=== PATIENT | female | born 1940 | race Caucasian/White ===

== ENCOUNTER → 2020-10-02 | Outpatient (CLI) | payer MEDICARE ==
[2020-09-07 11:00] VITALS: BP 139/68
[~2020-10-02] MED LIST: ALBU2.5V14 IH; ASPI325T8 PO; BUDE10.2 IH; DOXY100T PO; LEVO100T5 PO; LOSA100T14 PO; REGADENOSON 0.4 MG/5 ML DISP.SYRIN. IV ONE; TIOT18CA IH; VERA240T8 PO
--- NOTE | 2020-10-02 15:09 | RAD ---
MR#: [id number] Date of Study: 10/02/2020 Ordering Physician: DAVID TROY, Referring Physician: FELICITA DAIGLE Tech: RT Shirley (R) (N) APPROVED REPORT Test Type: Pharmacological Stress Nurse/Tech: Rhina Keller RN Test Indications: syncope Cardiac History: COPD, emphysema Medications: See Electronic Medical Record Medical History: See Electronic Medical Record Resting ECG: SR BBB Resting Heart Rate: 74 bpm Resting Blood Pressure: 133/64mmHg Pretest Chest Pain: None Nurse/Tech Notes lungs CTA, S1S2 Consent: The procedure was explained to the patient in lay terms. Informed consent was witnessed. Gerhard eout was entered into [employer]. History and Stress Test performed by RT Supriya (R) (N) Pharm. Details Pharmacologic stress testing was performed using 0.4mg per 5ml of regadenoson given intravenously ove r 7-10 seconds. Stress Symptoms No chest pain or symptoms. POST EXERCISE Reason for Termination: Infusion complete Max HR: 104 bpm Max Blood Pressure: 135/58mmHg Blood Pressure response to exercise: Normal blood pressure response during stress. Heart Rate response to exercise: normal response Chest Pain: No. Arrhythmia: No. ST Change: No. INTERPRETATION Stress EKG Conclusion: The resting EKG shows a sinus rhythm and a left bundle branch block. The stress EKG shows no significant changes from baseline. No EKG evidence of stress-induced ischemia. Imaging Protocol IMAGE PROTOCOL: Rest Tc-99m/stress Tc-99m 1 day Rest: Stress: Viability: Radiopharm.Tc99m [id number] Sestamibi Dose10.6mCi 33mCi Duration 15min. 15min. Img Date 10/02/2020 10/02/2020 Inj-Img [id number]. 60min. Rest Admin Site:IV - Right AntecubitalAdministrator:HEATHER Oliva Stress Admin Site: IV - Right AntecubitalAdministrator: HEATHER Oliva STRESS DATA End Diast. Vol.66.0mlAv. Heart Rate81.0bpm End Syst. Vol.7.0mlCO Index BSA0.0L/min Myocardial Ekpz791.0gEject. Hbxwrorz05.0% Stress Rates Pk. Fill Rate3.67EDV/secLVtime Pk. Fill 190.83msec Pk. Empty Rate5.21ESV/secLVtime Pk. Uszkd526.31msec 1/3 Pk. Fill2.02EDV/sec Stress Scores Regional WT0.00Summed WT9.00 Regional WM0.00Summed WM2.00 LV Perfusion The stress scans showed no significant defects. The rest scans showed no significant defects. Nuclear imaging shows no reversible ischemia or infarct. Wall Motion Left ventricular systolic function is normal with no regional wall motion abnormalities and an ejecti on fraction of greater than 70%. LV Perf. Quant 17 Seg. SSS2.00 17 Seg. SRS1.00 17 Seg. SDS1.00 Stress Defect Extent (% LAD)5.00Rest Defect Extent (% LAD)0.00Rev. Defect Extent (% LAD)0.00 Stress Defect Extent (% LCX) 5.00Rest Defect Extent (% LCX)0.00Rev. Defect Extent (% LCX)0.00 Stress Defect Extent (% RCA)0.00Rest Defect Extent (% RCA)0.00Rev. Defect Extent (% RCA)0.00 Stress Defect Extent (% LAXMI)3.30Rest Defect Extent (% LAXMI)0.00Rev. Defect Extent (% LAXMI)0.00 Conclusion 1. No EKG evidence of stress-induced ischemia. 2. Nuclear imaging shows no reversible ischemia or infarct. 3. Normal left ventricular systolic function with an ejection fraction of greater than 70%. 4. Low risk Lexiscan nuclear stress test. Signed by : Remi Thomas MD Electronically Approved : 10/02/2020 15:08:38
== END ==
LOC: NM 08:30
PROVIDERS: ATTEND Internal Medicine Cardiovascular Disease
DX: R07.9 Chest pain, unspecified (principal); J43.9 Emphysema, unspecified
CPT/HCPCS: 78452; 93017; A9500; J2785

== ENCOUNTER 2020-11-21 09:28 | Emergency (ER) | payer MEDICARE ==
[~2020-11-21] VITALS: Ht 162.6 cm; Wt 59.5 kg
[~2020-11-21 09:28] MED LIST changes: -REGADENOSON 0.4 MG/5 ML DISP.SYRIN. IV ONE
--- NOTE | 2020-11-21 09:42 | PHYS DOC ---
Past Medical History Past Medical History: COPD, Hypertension, Hypothyroid Additional Past Medical Histor: emphysema Past Surgical History: No Surgical History Smoking Status: Never Smoker Alcohol Use: None Drug Use: None General Adult EDM: Chief Complaint: DIZZY/LIGHT HEADED HPI: HPI: Patient is a 80 year old female who presents to ER for evaluation of dizziness since Wednesday night while she was in her bed, associated with ringing in her ears. Patient denies any headache, no weakness or numbness anywhere. Patient had never had this problem before. Patient denies any chest pain, no cough, no fever. Patient denies any blurry vision. Patient was seen by her doctor yesterday for the same symptom, prescribed meclizine for dizziness. The symptoms get worse with head movement OR upright position. Review of Systems: Review of Systems: Constitutional: Denies fever or chills. [] Eyes: Denies change in visual acuity. [] HENT: Denies nasal congestion or sore throat. [] Respiratory: Denies cough or shortness of breath. [] Cardiovascular: Denies chest pain or edema. [] GI: Denies abdominal pain, nausea, vomiting, bloody stools or diarrhea. [] : Denies dysuria. [] Musculoskeletal: Denies back pain or joint pain. [] Integument: Denies rash. [] Neurologic: Denies headache, focal weakness or sensory changes. Positive for dizziness Endocrine: Denies polyuria or polydipsia. [] Lymphatic: Denies swollen glands. [] Psychiatric: Denies depression or anxiety. [] Heart Score: Risk Factors: Risk Factors: DM, Current or recent (<one month) smoker, HTN, HLP, family history of CAD, obesity. Risk Scores: Score 0 - 3: 2.5% MACE over next 6 weeks - Discharge Home Score 4 - 6: 20.3% MACE over next 6 weeks - Admit for Clinical Observation Score 7 - 10: 72.7% MACE over next 6 weeks - Early Invasive Strategies Allergies: Allergies: Allergies Coded Allergies Type Severity Reaction Last Updated Verified No Known Drug Allergies 01/21/14 No Physical Exam: PE: Constitutional: Well developed, well nourished, no acute distress, non-toxic appearance. [] HENT: Normocephalic, atraumatic, bilateral external ears normal, oropharynx moist, no oral exudates, nose normal. [] Eyes: PERRLA, EOMI, conjunctiva normal, no discharge. [] Neck: Normal range of motion, no tenderness, supple, no stridor. [] Cardiovascular:Heart rate regular rhythm, no murmur [] Lungs & Thorax: Bilateral breath sounds clear to auscultation [] Abdomen: Bowel sounds normal, soft, no tenderness, no masses, no pulsatile masses. [] Skin: Warm, dry, no erythema, no rash. [] Back: No tenderness, no CVA tenderness. [] Extremities: No tenderness, no cyanosis, no clubbing, ROM intact, no edema. [] Neurologic: Alert and oriented X 3, normal motor function, normal sensory function, no focal deficits noted. [] Psychologic: Affect normal, judgement normal, mood normal. [] Current Patient Data: Labs: Laboratory Tests Test 11/21/20 10:02 11/21/20 13:20 White Blood Count 4.1 x10^3/uL Red Blood Count 3.94 x10^6/uL Hemoglobin 12.0 g/dL Hematocrit 35.2 % Mean Corpuscular Volume 90 fL Mean Corpuscular Hemoglobin 30 pg Mean Corpuscular Hemoglobin Concent 34 g/dL Red Cell Distribution Width 13.8 % Platelet Count 215 x10^3/uL Neutrophils (%) (Auto) 71 % Lymphocytes (%) (Auto) 16 % Monocytes (%) (Auto) 12 % Eosinophils (%) (Auto) 1 % Basophils (%) (Auto) 1 % Neutrophils # (Auto) 2.9 x10^3/uL Lymphocytes # (Auto) 0.6 x10^3/uL Monocytes # (Auto) 0.5 x10^3/uL Eosinophils # (Auto) 0.0 x10^3/uL Basophils # (Auto) 0.0 x10^3/uL Sodium Level 130 mmol/L Potassium Level 4.3 mmol/L Chloride Level 93 mmol/L Carbon Dioxide Level 31 mmol/L Anion Gap 6 Blood Urea Nitrogen 13 mg/dL Creatinine 0.6 mg/dL Estimated GFR (Cockcroft-Gault) 95.7 BUN/Creatinine Ratio 22 Glucose Level 104 mg/dL Calcium Level 10.2 mg/dL Magnesium Level 2.0 mg/dL Total Bilirubin 0.4 mg/dL Aspartate Amino Transf (AST/SGOT) 22 U/L Alanine Aminotransferase (ALT/SGPT) 27 U/L Alkaline Phosphatase 54 U/L Troponin I Quantitative < 0.017 ng/mL Total Protein 7.7 g/dL Albumin 3.9 g/dL Albumin/Globulin Ratio 1.0 Urine Collection Type Unknown Urine Color Yellow Urine Clarity Clear Urine pH 6.0 Urine Specific [place] 1.015 Urine Protein Negative mg/dL Urine Glucose (UA) Negative mg/dL Urine Ketones (Stick) Negative mg/dL Urine Blood Negative Urine Nitrite Negative Urine Bilirubin Negative Urine Urobilinogen Dipstick 0.2 mg/dL Urine Leukocyte Esterase Negative Urine RBC 0 /HPF Urine WBC Occ /HPF Urine Squamous Epithelial Cells Mod /LPF Urine Bacteria Moderate /HPF Current Medications Medications (Trade) Dose Ordered Sig/Petty Route PRN Reason Start Time Stop Time Status Last Admin Dose Admin Meclizine HCl (Antivert) 25 mg 1X ONCE PO 11/21/20 11:45 11/21/20 11:46 DC 11/21/20 11:46 EKG: EKG: EKG was done at 948, heart rate 87 bpm, left bundle branch block, sinus rhythm, no ST segment ovation. Radiology/Procedures: Radiology/Procedures: [][facility] [address] [place], [place] [id number] IMAGING REPORT Signed PATIENT: HERLINDA QUINN ACCOUNT: [id number] : 1940 LOCATION: ER AGE: 80 SEX: F EXAM STATUS: REG ER ORD. PHYSICIAN: BRISEYDA WONG DO REASON: dizziness since 11/19/20 PROCEDURE: CT HEAD WO CONTRAST CT HEAD/BRAIN WO Date: 11/21/2020 10:38 AM Clinical Indication: Reason: dizziness since 11/19/20 / Spl. Instructions: / History: Comparison: 09/04/2020. Technique: 5 mm axial tomographic images were obtained of the head without contrast. These were viewed on brain and bone windows. One or more of the following dose reduction techniques were utilized: Automated exposure control (AEC), Adjustment of mA and/or kV according to patient size, Use of iterative reconstruction technique such as ASiR, CT scan done according to ALARA and image gently/image wisely Findings: Mild generalized cerebral and cerebellar volume loss. Mild nonspecific periventricular hypoattenuation, most commonly seen with chronic small vessel ischemic disease. Calcified atherosclerosis of the bilateral cavernous and paraclinoid internal carotid arteries and intracranial vertebral arteries. No intra- or extra-axial mass or fluid collection. No acute hemorrhage. The ventricles are normal in size, shape, and morphology. The isaac-white matter junction is normal. The subarachnoid cisterns are patent. The visualized paranasal sinuses are normal. The visualized portions of the orbits and globes are normal. The mastoid air cells are clear. The histology specialist topogram shows no lytic lesion or fracture. Impression: No acute intracranial process. Mild cerebral volume loss. Mild chronic small vessel ischemic disease. Electronically signed by: Melissa Joaquin MD (11/21/2020 10:49 AM) [id number] DICTATED and SIGNED BY: MELISSA JOAQUIN MD DATE: 11/21/20 [id number] Course & Med Decision Making: Course & Med Decision Making Pertinent Labs and Imaging studies reviewed. (See chart for details) Patient was given meclizine in the ER, SHE feels much better. Patient will be discharged home, she will need to follow-up with ENT for further evaluation. Dragon Disclaimer: Dragon Disclaimer: This electronic medical record was generated, in whole or in part, using a voice recognition dictation system. Departure Departure Impression: Primary Impression: Vertigo Disposition: 01 DC HOME SELF CARE/HOMELESS Condition: IMPROVED Referrals: JOCELYNE MCGRATH MD (PCP) JONATHAN QUEZADA MD PLEASE CALL THIS ENT DOCTOR FOR FOLLOW UP NEXT WEEK. Patient Instructions: Vertigo Additional Instructions: Thank you for visiting our Emergency Department. We appreciate you trusting us with your care. If any additional problems come up don't hesitate to return to visit us. Please follow up with your primary care provider so they can plan add itional care if needed and know about the problem that you had. If symptoms worsen come back to the Emergency Department. Any concerning symptoms that start such as chest pain, shortness of air, weakness or numbness on one side of the body, running high fevers or any other concerning symptoms return to the ER. BRISEYDA WONG DO Nov 21, 2020 09:42
[2020-11-21 10:14] LABS: BASO % 1 % (0-3); EOS % 1 % (0-3); HEMATOCRIT 35.2 % (36.0-47.0); LYMPH # 0.6 x10^3/uL (1.0-4.8); LYMPH % 16 % (24-48); MEAN CORPUSCULAR HEMOGLOBIN 30 pg (25-35); MEAN CORPUSCULAR HGB CONC 34 g/dL (31-37); MEAN CORPUSCULAR VOLUME 90 fL (79-100); MONO # 0.5 x10^3/uL (0.0-1.1); MONO % 12 % (0-9); NEUT # 2.9 x10^3/uL (1.8-7.7); NEUT % 71 % (31-73); PLATELET COUNT 215 x10^3/uL (140-400); RED BLOOD COUNT 3.94 x10^6/uL (3.50-5.40); RED CELL DISTRIBUTION WIDTH 13.8 % (11.5-14.5); WHITE BLOOD COUNT 4.1 x10^3/uL (4.0-11.0)
[2020-11-21 10:24] LABS: CALCIUM 10.2 mg/dL (8.5-10.1); CREATININE 0.6 mg/dL (0.6-1.0); GFR 95.7; POTASSIUM 4.3 mmol/L (3.5-5.1)
[2020-11-21 10:41] LABS: ALBUMIN 3.9 g/dL (3.4-5.0); TOTAL BILIRUBIN 0.4 mg/dL (0.2-1.0); TOTAL PROTEIN 7.7 g/dL (6.4-8.2)
--- NOTE | 2020-11-21 10:52 | RAD ---
CT HEAD/BRAIN WO Date: 11/21/2020 10:38 AM Clinical Indication: Reason: dizziness since 11/19/20 / Spl. Instructions: / History: Comparison: 09/04/2020. Technique: 5 mm axial tomographic images were obtained of the head without contrast. These were view ed on brain and bone windows. One or more of the following dose reduction techniques were utilized: A utomated exposure control (AEC), Adjustment of mA and/or kV according to patient size, Use of iterati ve reconstruction technique such as ASiR, CT scan done according to ALARA and image gently/image wright ly Findings: Mild generalized cerebral and cerebellar volume loss. Mild nonspecific periventricular hypoattenuatio n, most commonly seen with chronic small vessel ischemic disease. Calcified atherosclerosis of the bi lateral cavernous and paraclinoid internal carotid arteries and intracranial vertebral arteries. No intra- or extra-axial mass or fluid collection. No acute hemorrhage. The ventricles are normal in size, shape, and morphology. The isaac-white matter junction is normal. The subarachnoid cisterns are patent. The visualized paranasal sinuses are normal. The visualized portions of the orbits and globes are no rmal. The mastoid air cells are clear. The wire straightening machine operator topogram shows no lytic lesion or fracture. Impression: No acute intracranial process. Mild cerebral volume loss. Mild chronic small vessel ischemic disease. Electronically signed by: Eugene Joaquin MD (11/21/2020 10:49 AM) [id number]
[2020-11-21] MEDS ORDERED: MECLIZINE HCL 12.5 MG TABLET. PO ONE (11:45)
[2020-11-21 13:47] LABS: BILIRUBIN,URINE NEGATIVE (NEG); CLARITY,URINE CLEAR; COLOR,URINE YELLOW; NITRITE,URINE NEGATIVE (NEG); PROTEIN,URINE NEGATIVE (NEG-TRACE); UROBILINOGEN,URINE 0.2 mg/dL (0.2 mg/dL)
[2020-11-21 13:58] LABS: BACTERIA,URINE MODERATE /HPF (0-FEW); RBC,URINE 0 /HPF (0-2); WBC,URINE OCC /HPF (0-4)
[2020-11-21 14:11] VITALS: BP 152/78
== END 2020-11-21 14:41 | disposition home or self-care (01) ==
LOC: ER 09:28
DX: R42 Dizziness and giddiness (principal); H93.13 Tinnitus, bilateral; J44.9 Chronic obstructive pulmonary disease, unspecified; I10 Essential (primary) hypertension; E03.9 Hypothyroidism, unspecified
CPT/HCPCS: 36415; 70450; 80053; 81001; 83735; 84484; 85025; 87086; 93005; 99284; J8597

== ENCOUNTER 2022-01-26 08:46 | Observation (INO) | payer MEDICARE ==
[~2022-01-26] VITALS: Ht 162.6 cm; Wt 62.6 kg
[~2022-01-26 08:46] MED LIST changes: +VERA240T45 PO; -VERA240T8 PO
[2022-01-26] MEDS ORDERED: methylPREDNISolone SOD SUCC PF 125 MG/2 ML VIAL. IV ONE (09:30)
[2022-01-26] MEDS ORDERED: IPRATRPIUM/ALBUTEROL 0.5/2.5MG 3 ML NEBU. NEB ONE (09:30)
[2022-01-26] MEDS ORDERED: IV NORMAL SALINE 1000ML BAG 1,000 ML IV ONE (09:30)
--- NOTE | 2022-01-26 09:39 | PHYS DOC ---
Past Medical History Past Medical History: COPD, Hypertension, Hypothyroid, Other Additional Past Medical Histor: emphysema,VERTIGO Past Surgical History: No Surgical History Smoking Status: Never Smoker Alcohol Use: None Drug Use: None General Adult EDM: Chief Complaint: SHORTNESS OF BREATH HPI: HPI: Patient is a 81 year old female who presents with complaints of shortness of breath. Patient states that her PCP changed her inhalers a few months ago and since then she feels like she has had an increase in shortness of breath with exertion. Patient wears 3 L nasal cannula at home at all times. Denies recent illness or fevers. No chest pain. Patient states that she has a history of hypertension, hypothyroidism, COPD. Patient denies tobacco or drug use. Patient been fully vaccinated for COVID-19. Review of Systems: Review of Systems: ROS At least 10 ROS systems have been reviewed and are negative except as documented in the HPI. General: Negative except as outlined in HPI above. Skin: Negative except as outlined in HPI above. HEENT: Negative except as outlined in HPI above. Neck: Negative except as outlined in HPI above. Respiratory: Negative except as outlined in HPI above.. Cardiovascular: Negative except as outlined in HPI above. Abdomen: Negative except as outlined in HPI above. : Negative except as outlined in HPI above. Back/MSK: Negative except as outlined in HPI above. Neuro: Negative except as outlined in HPI above. Psych: Negative except as outlined in HPI above. Heart Score: C/O Chest Pain: No Risk Factors: Risk Factors: DM, Current or recent (<one month) smoker, HTN, HLP, family history of CAD, obesity. Risk Scores: Score 0 - 3: 2.5% MACE over next 6 weeks - Discharge Home Score 4 - 6: 20.3% MACE over next 6 weeks - Admit for Clinical Observation Score 7 - 10: 72.7% MACE over next 6 weeks - Early Invasive Strategies Current Medications: Current Medications Medications (Trade) Dose Ordered Sig/Petty Start Time Stop Time Status Last Admin Dose Admin Albuterol/ Ipratropium (Duoneb) 3 ml 1X ONCE 01/26/22 09:30 3 09:31 DC Methylprednisolone Sodium Succinate (SOLU-Medrol 125MG VIAL) 125 mg 1X ONCE 01/26/22 09:30 01/26/22 09:31 DC Sodium Chloride 1,000 ml @ 1,000 mls/hr 1X ONCE 01/26/22 09:30 01/26/22 10:29 Allergies: Allergies: Allergies Coded Allergies Type Severity Reaction Last Updated Verified No Known Drug Allergies 01/21/14 No Physical Exam: PE: Constitutional: Well developed, well nourished, no acute distress, non-toxic appearance. [] HENT: Normocephalic, atraumatic, bilateral external ears normal, oropharynx moist, no oral exudates, nose normal. [] Eyes: PERRLA, EOMI, conjunctiva normal, no discharge. [] Neck: Normal range of motion, no tenderness, supple, no stridor. [] Cardiovascular:Heart rate regular rhythm, no murmur [] Lungs & Thorax: Bilateral breath sounds clear to auscultation [] Abdomen: Bowel sounds normal, soft, no tenderness, no masses, no pulsatile masses. [] Skin: Warm, dry, no erythema, no rash. [] Back: No tenderness, no CVA tenderness. [] Extremities: No tenderness, no cyanosis, no clubbing, ROM intact, no edema. [] Neurologic: Alert and oriented X 3, normal motor function, normal sensory funct ion, no focal deficits noted. [] Psychologic: Affect normal, judgement normal, mood normal. [] Current Patient Data: Vital Signs: Vital Signs Date Time Temp Pulse Resp B/P (MAP) Pulse Ox O2 Delivery O2 Flow Rate FiO2 01/26/22 08:47 97.1 97 20 180/86 (117) 98 Nasal Cannula 2.0 97.1 EKG: EKG: [] Radiology/Procedures: Radiology/Procedures: []AP chest. HISTORY: Short of breath AP view was taken of the chest. There is a very large hiatus hernia. There is mild basilar atelectasis without other infiltrates. There has been improvement compared to an old study from August 2020. IMPRESSION: 1. Very large hiatus hernia. 2. Mild basilar atelectasis without other definite infiltrates Electronically signed by: Terrence Barnhart MD (01/26/2022 9:43 AM) [facility] Course & Med Decision Making: Course & Med Decision Making Pertinent Labs and Imaging studies reviewed. (See chart for details) [] 81-year-old female presents with increasing shortness of breath. Patient has a history of COPD and wears O2 at home at all times. Patient is on 3 L nasal cannula which is what she currently wears at home. Patient's been satting 100%. Afebrile. Work-up in ER consisted of labs, urinalysis, EKG, chest x-ray. Patient given breathing treatment and steroids to help with symptoms. Troponin is 59. All other labs unremarkable. D-dimer is negative. Chest x-ray is unremarkable. Discussed all results with patient. Patient states that she still feels very weak and feels short of breath. Patient's concerned about going home by herself due to weakness. Dragon Disclaimer: Dragon Disclaimer: This electronic medical record was generated, in whole or in part, using a voice recognition dictation system. Departure Departure Impression: Primary Impression: COPD exacerbation Additional Impression: Weakness Disposition: ADMITTED INPATIENT Admitting Physician: MIGDALIA Condition: STABLE Referrals: JOCELYNE MCGRATH MD (PCP) SALLY COVARRUBIAS APRN Jan 26, 2022 09:39
--- NOTE | 2022-01-26 09:46 | RAD ---
AP chest. HISTORY: Short of breath AP view was taken of the chest. There is a very large hiatus hernia. There is mild basilar atelectasi s without other infiltrates. There has been improvement compared to an old study from August 2020. IMPRESSION: 1. Very large hiatus hernia. 2. Mild basilar atelectasis without other definite infiltrates Electronically signed by: Terrence Barnhart MD (01/26/2022 9:43 AM) [facility]
[2022-01-26 09:55] LABS: CALCIUM 10.1 mg/dL (8.5-10.1); CREATININE 0.6 mg/dL (0.6-1.0); GFR 95.5; POTASSIUM 3.4 mmol/L (3.5-5.1)
[2022-01-26 09:59] LABS: BASO % 1 % (0-3); EOS # 0.1 x10^3/uL (0.0-0.7); EOS % 2 % (0-3); HEMATOCRIT 34.4 % (36.0-47.0); HEMOGLOBIN 11.4 g/dL (12.0-15.5); LYMPH # 0.7 x10^3/uL (1.0-4.8); LYMPH % 12 % (24-48); MEAN CORPUSCULAR HEMOGLOBIN 30 pg (25-35); MEAN CORPUSCULAR HGB CONC 33 g/dL (31-37); MEAN CORPUSCULAR VOLUME 89 fL (79-100); MONO # 0.6 x10^3/uL (0.0-1.1); MONO % 10 % (0-9); NEUT # 4.5 x10^3/uL (1.8-7.7); NEUT % 75 % (31-73); PLATELET COUNT 252 x10^3/uL (140-400); RED BLOOD COUNT 3.85 x10^6/uL (3.50-5.40); RED CELL DISTRIBUTION WIDTH 12.9 % (11.5-14.5)
[2022-01-26 10:00] LABS: ALBUMIN 3.8 g/dL (3.4-5.0); ALBUMIN/GLOBULIN RATIO 0.9 (1.0-1.7); MAGNESIUM 1.7 mg/dL (1.8-2.4); TOTAL BILIRUBIN 0.3 mg/dL (0.2-1.0); TOTAL PROTEIN 7.9 g/dL (6.4-8.2)
[2022-01-26 11:14] LABS: BILIRUBIN,URINE NEGATIVE (NEG); CLARITY,URINE CLEAR; COLOR,URINE YELLOW; NITRITE,URINE NEGATIVE (NEG); PROTEIN,URINE NEGATIVE (NEG-TRACE); UROBILINOGEN,URINE 0.2 mg/dL (0.2 mg/dL)
[2022-01-26 11:16] LABS: BACTERIA,URINE 0 /HPF (0-FEW); RBC,URINE OCC /HPF (0-2); WBC,URINE 0 /HPF (0-4)
--- NOTE | 2022-01-26 12:55 | PDOC1 ---
History and Physical Date of Service: DOS: DATE: 01/26/22 TIME: 12:49 Chief Complaint: Chief Complain: Shortness of breath History of Present Illness: HPI: 81-year-old female with past medical history of COPD, hypertension, hypothyroidism who presents with shakiness, weakness and shortness of breath. Onset of symptoms began about 2 weeks ago starting with shortness of breath. This morning she also felt shakiness and weakness and that is why she came to the hospital. Her PCP recently changed her inhalers from Spiriva and Symbicort to Trelegy mainly due to cost and efficacy and ever since the change of her she has been having worsening of her symptoms. Patient is on chronic 3 L nasal cannula at home for her COPD. Denies any fevers, chest pain, abdominal pain, nausea vomiting, dysuria or hematuria or smoking. Patient is vaccinated for Covid. Her tin can feeder is Dr. Clemente. Past Medical/Surgical History: PMH/PSH: Past Medical History: COPD, Hypertension, Hypothyroid, emphysema,VERTIGO Past Surgical History: No Surgical History Allergies: Allergies: Coded Allergies: No Known Drug Allergies (Unverified , 01/21/14) Family History: Family History: Reviewed with no relative findings in the chart Social History: Social History: Smoking Status: Never Smoker Alcohol Use: None Drug Use: None Current Medications: Current Medications Current Medications Sodium Chloride 1,000 ml @ 1,000 mls/hr 1X ONCE IV Last administered on 01/26/22at 09:35; Start 01/26/22 at 09:30; Stop 01/26/22 at 10:29; Status DC Albuterol/ Ipratropium (Duoneb) 3 ml 1X ONCE NEB Last administered on 01/26/22at 09:38; Start 01/26/22 at 09:30; Stop 01/26/22 at 09:31; Status DC Methylprednisolone Sodium Succinate (SOLU-Medrol 125MG VIAL) 125 mg 1X ONCE IV Last administered on 01/26/22at 09:36; Start 01/26/22 at 09:30; Stop 01/26/22 at 09:31; Status DC Active Scripts Active Doxycycline Hyclate 100 Mg Tablet 100 Mg PO BID 5 Days Reported Albuterol Sulfate Conc Neb Soln (Albuterol Sulfate) 2.5 Mg/0.5 Ml Vial.neb 2.5 Mg IH QID Symbicort 160-4.5 Mcg Inhaler (Budesonide/Formoterol Fumarate) 10.2 Gm Hfa.aer.ad 10.2 Gm IH BID Spiriva (Tiotropium [place]) 18 Mcg Cap.w.dev 18 Mcg IH DAILY Aspirin 325 Mg Tablet 325 Mg PO DAILY Levothyroxine Sodium 100 Mcg Tablet 100 Mcg PO DAILY Losartan Potassium 100 Mg Tablet 100 Mg PO DAILY Verapamil Er (Verapamil Hcl) 240 Mg Tablet.er 120 Mg PO QHS Verapamil Er (Verapamil Hcl) 240 Mg Tablet.er 240 Mg PO DAILY ROS: Review of Systems Review of System REVIEW OF SYSTEMS: GENERAL: Positive for weakness SKIN: No bruising, hair changes or rashes. EYES: No blurred, double or loss of vision. NOSE AND THROAT: No history of nosebleeds, hoarseness or sore throat. HEART: No history of palpitations, chest pain or shortness of breath on exertion. LUNGS: Positive for shortness of breath. GASTROINTESTINAL: Denies changes in appetite, nausea, vomiting, diarrhea or constipation. GENITOURINARY: No history of frequency, urgency, hesitancy or nocturia. NEUROLOGIC: Denies history of numbness, tingling, or tremor. PSYCHIATRIC: No history of panic, anxiety or depression. ENDOCRINE: No history of heat or cold intolerance, polyuria or polydipsia. EXTREMITIES: Denies joint pain, pain on walking or stiffness. Physical Exam: Vital Signs: Vital Signs Date Time Temp Pulse Resp B/P (MAP) Pulse Ox O2 Delivery O2 Flow Rate FiO2 01/26/22 10:58 72 25 136/65 (88) 100 Nasal Cannula 2.0 01/26/22 08:47 97.1 97.1 Physcial Exam: General: Well developed, well nourished, no acute distress, well appearing HEENT: Pupils equally round and reactive to light, EOMI, no discharge, normal conjunctiva Neck: Supple, no nuchal rigidity, no JVD, trachea midline, no tenderness Cardiac: RRR, no murmurs, no gallops, no rubs Chest/Lungs: CTAB, no wheeze, no rhonchi, no crackles Abdomen: soft, non-distended, no guarding, no peritoneal signs, non-tender Back: No tenderness Extremities: no edema, pulses intact, non-tender,capillary refill <3 sec bilateral upper and lower extremities, Neuro: Alert and oriented x 4, no focal deficits, normal speech Labs: Labs: Laboratory Tests Test 01/26/22 09:15 01/26/22 10:37 White Blood Count 6.0 x10^3/uL (4.0-11.0) Red Blood Count 3.85 x10^6/uL (3.50-5.40) Hemoglobin 11.4 g/dL (12.0-15.5) Hematocrit 34.4 % (36.0-47.0) Mean Corpuscular Volume 89 fL (79-100) Mean Corpuscular Hemoglobin 30 pg (25-35) Mean Corpuscular Hemoglobin Concent 33 g/dL (31-37) Red Cell Distribution Width 12.9 % (11.5-14.5) Platelet Count 252 x10^3/uL (140-400) Neutrophils (%) (Auto) 75 % (31-73) Lymphocytes (%) (Auto) 12 % (24-48) Monocytes (%) (Auto) 10 % (0-9) Eosinophils (%) (Auto) 2 % (0-3) Basophils (%) (Auto) 1 % (0-3) Neutrophils # (Auto) 4.5 x10^3/uL (1.8-7.7) Lymphocytes # (Auto) 0.7 x10^3/uL (1.0-4.8) Monocytes # (Auto) 0.6 x10^3/uL (0.0-1.1) Eosinophils # (Auto) 0.1 x10^3/uL (0.0-0.7) Basophils # (Auto) 0.0 x10^3/uL (0.0-0.2) D-Dimer (Caitlin) 0.49 ug/mlFEU (0.00-0.50) Sodium Level 131 mmol/L (136-145) Potassium Level 3.4 mmol/L (3.5-5.1) Chloride Level 93 mmol/L (98-107) Carbon Dioxide Level 32 mmol/L (21-32) Anion Gap 6 (6-14) Blood Urea Nitrogen 13 mg/dL (7-20) Creatinine 0.6 mg/dL (0.6-1.0) Estimated GFR (Cockcroft-Gault) 95.5 BUN/Creatinine Ratio 22 (6-20) Glucose Level 103 mg/dL (70-99) Calcium Level 10.1 mg/dL (8.5-10.1) Magnesium Level 1.7 mg/dL (1.8-2.4) Total Bilirubin 0.3 mg/dL (0.2-1.0) Aspartate Amino Transf (AST/SGOT) 33 U/L (15-37) Alanine Aminotransferase (ALT/SGPT) 38 U/L (14-59) Alkaline Phosphatase 79 U/L (46-116) Troponin I High Sensitivity 59 ng/L (4-50) UK-Lch-Z-Type Natriuretic Peptide 261 pg/mL (0-449) Total Protein 7.9 g/dL (6.4-8.2) Albumin 3.8 g/dL (3.4-5.0) Albumin/Globulin Ratio 0.9 (1.0-1.7) Urine Collection Type Unknown Urine Color Yellow Urine Clarity Clear Urine pH 7.0 (<5.0-8.0) Urine Specific [place] 1.015 (1.000-1.030) Urine Protein Negative mg/dL (NEG-TRACE) Urine Glucose (UA) Negative mg/dL (NEG) Urine Ketones (Stick) Negative mg/dL (NEG) Urine Blood Trace (NEG) Urine Nitrite Negative (NEG) Urine Bilirubin Negative (NEG) Urine Urobilinogen Dipstick 0.2 mg/dL (0.2 mg/dL) Urine Leukocyte Esterase Negative (NEG) Urine RBC Occ /HPF (0-2) Urine WBC 0 /HPF (0-4) Urine Squamous Epithelial Cells Mod /LPF Urine Bacteria 0 /HPF (0-FEW) Laboratory Tests Test 01/26/22 09:15 01/26/22 10:37 White Blood Count 6.0 x10^3/uL (4.0-11.0) Red Blood Count 3.85 x10^6/uL (3.50-5.40) Hemoglobin 11.4 g/dL (12.0-15.5) Hematocrit 34.4 % (36.0-47.0) Mean Corpuscular Volume 89 fL (79-100) Mean Corpuscular Hemoglobin 30 pg (25-35) Mean Corpuscular Hemoglobin Concent 33 g/dL (31-37) Red Cell Distribution Width 12.9 % (11.5-14.5) Platelet Count 252 x10^3/uL (140-400) Neutrophils (%) (Auto) 75 % (31-73) Lymphocytes (%) (Auto) 12 % (24-48) Monocytes (%) (Auto) 10 % (0-9) Eosinophils (%) (Auto) 2 % (0-3) Basophils (%) (Auto) 1 % (0-3) Neutrophils # (Auto) 4.5 x10^3/uL (1.8-7.7) Lymphocytes # (Auto) 0.7 x10^3/uL (1.0-4.8) Monocytes # (Auto) 0.6 x10^3/uL (0.0-1.1) Eosinophils # (Auto) 0.1 x10^3/uL (0.0-0.7) Basophils # (Auto) 0.0 x10^3/uL (0.0-0.2) D-Dimer (Caitlin) 0.49 ug/mlFEU (0.00-0.50) Sodium Level 131 mmol/L (136-145) Potassium Level 3.4 mmol/L (3.5-5.1) Chloride Level 93 mmol/L (98-107) Carbon Dioxide Level 32 mmol/L (21-32) Anion Gap 6 (6-14) Blood Urea Nitrogen 13 mg/dL (7-20) Creatinine 0.6 mg/dL (0.6-1.0) Estimated GFR (Cockcroft-Gault) 95.5 BUN/Creatinine Ratio 22 (6-20) Glucose Level 103 mg/dL (70-99) Calcium Level 10.1 mg/dL (8.5-10.1) Magnesium Level 1.7 mg/dL (1.8-2.4) Total Bilirubin 0.3 mg/dL (0.2-1.0) Aspartate Amino Transf (AST/SGOT) 33 U/L (15-37) Alanine Aminotransferase (ALT/SGPT) 38 U/L (14-59) Alkaline Phosphatase 79 U/L (46-116) Troponin I High Sensitivity 59 ng/L (4-50) ES-Oit-H-Type Natriuretic Peptide 261 pg/mL (0-449) Total Protein 7.9 g/dL (6.4-8.2) Albumin 3.8 g/dL (3.4-5.0) Albumin/Globulin Ratio 0.9 (1.0-1.7) Urine Collection Type Unknown Urine Color Yellow Urine Clarity Clear Urine pH 7.0 (<5.0-8.0) Urine Specific [place] 1.015 (1.000-1.030) Urine Protein Negative mg/dL (NEG-TRACE) Urine Glucose (UA) Negative mg/dL (NEG) Urine Ketones (Stick) Negative mg/dL (NEG) Urine Blood Trace (NEG) Urine Nitrite Negative (NEG) Urine Bilirubin Negative (NEG) Urine Urobilinogen Dipstick 0.2 mg/dL (0.2 mg/dL) Urine Leukocyte Esterase Negative (NEG) Urine RBC Occ /HPF (0-2) Urine WBC 0 /HPF (0-4) Urine Squamous Epithelial Cells Mod /LPF Urine Bacteria 0 /HPF (0-FEW) Images: Images PROCEDURE: CHEST AP ONLY AP chest. HISTORY: Short of breath AP view was taken of the chest. There is a very large hiatus hernia. There is mild basilar atelectasis without other infiltrates. There has been improvement compared to an old study from August 2020. IMPRESSION: 1. Very large hiatus hernia. 2. Mild basilar atelectasis without other definite infiltrates Assessment/Plan Assessment/Plan Acute hypoxic respiratory failure Acute electrolyte derangementhyponatremia, hypochloremia, hypokalemia, hypomagnesemia suggestive of volume depletion Hypertensive urgency History of COPD History of hypertension History of hypothyroidism History of vertigo Admit to hospitalist service for further management IV steroids O2 supplementation Continue IV fluids IV electrolyte replacement as needed Resume home antihypertensive regimens Lovenox for DVT prophylaxis Protonix while on steroids GI prophylaxis Cardiac diet CODE STATUS full Discussed with RN and SW Disposition inpatient management as above DPOA: Sister Justifications for Admission Other Justification Acute hypoxic respiratory failure, intractable pain ZARINA OLIVA MD Jan 26, 2022 12:55
[2022-01-26] MEDS ORDERED: DEXTROSE 50% 25 GM / 50ML DISP.SYRIN. IV PRN (13:00)
[2022-01-26] MEDS ORDERED: PROCHLORPERAZINE 10 MG/2 ML VIAL. IV PRN (13:00)
[2022-01-26] MEDS ORDERED: diphenhydrAMINE 50 MG/ML VIAL IVP PRN (13:00)
[2022-01-26] MEDS ORDERED: ACETAMINOPHEN 325 MG TABLET. PO PRN (13:00)
[2022-01-26] MEDS ORDERED: SENNOSIDES 8.6 MG TABLET PO PRN (13:00)
[2022-01-26] MEDS ORDERED: diphenhydrAMINE HCL 25 MG CAPSULE PO PRN ×2 (13:00)
[2022-01-26] MEDS ORDERED: ZOLPIDEM 5 MG TABLET. PO PRN (13:00)
[2022-01-26] MEDS ORDERED: LORazepam 0.5 MG TABLET PO PRN (13:00)
[2022-01-26] MEDS ORDERED: ONDANSETRON PF 4 MG/2 ML VIAL. IVP PRN (13:00)
[2022-01-26] MEDS ORDERED: DOCUSATE SODIUM 100 MG CAPSULE. PO PRN (13:00)
[2022-01-26] MEDS: IV NORMAL SALINE 1000ML BAG 1,000 ML IV SCH (13:56)
[2022-01-26] MEDS: ENOXAPARIN 40 MG/0.4 ML SYRINGE. SQ SCH (13:57)
[2022-01-26] MEDS ORDERED: POTASSIUM CHLORIDE 20 MEQ TABLET.ER. PO ONE (14:00)
[2022-01-26] MEDS ORDERED: MAGNESIUM SULFATE 2GM 50 ML IV ONE (14:00)
[2022-01-26] MEDS ORDERED: LEVO125T5 PO (15:38)
[2022-01-26] MEDS ORDERED: CHOL10008 PO (15:38)
[2022-01-26] MEDS ORDERED: ALBU2.5V8 IH (15:38)
[2022-01-26] MEDS ORDERED: FLUT1BLS3 IH (15:38)
[2022-01-26] MEDS: IPRATRPIUM/ALBUTEROL 0.5/2.5MG 3 ML NEBU. NEB SCH ×2 (15:43→20:27)
[2022-01-26 16:09] VITALS: BP 153/77
[2022-01-26] MEDS: methylPREDNISolone SOD SUCC PF 40 MG/ML VIAL. IV SCH (18:10)
[2022-01-26 19:00] VITALS: BP 140/70
[2022-01-26 23:05] VITALS: BP 136/82
[2022-01-27 03:32] VITALS: BP 136/74
[2022-01-27] MEDS: methylPREDNISolone SOD SUCC PF 40 MG/ML VIAL. IV SCH ×4 (05:39→18:17)
[2022-01-27 07:00] VITALS: BP 125/65
[2022-01-27] MEDS: IPRATRPIUM/ALBUTEROL 0.5/2.5MG 3 ML NEBU. NEB SCH ×4 (07:27→19:57)
[2022-01-27 07:40] LABS: BASO % 0 % (0-3); EOS % 0 % (0-3); HEMATOCRIT 30.6 % (36.0-47.0); HEMOGLOBIN 10.6 g/dL (12.0-15.5); LYMPH # 0.4 x10^3/uL (1.0-4.8); LYMPH % 14 % (24-48); MEAN CORPUSCULAR HEMOGLOBIN 31 pg (25-35); MEAN CORPUSCULAR HGB CONC 35 g/dL (31-37); MEAN CORPUSCULAR VOLUME 90 fL (79-100); MONO # 0.1 x10^3/uL (0.0-1.1); MONO % 2 % (0-9); NEUT # 2.5 x10^3/uL (1.8-7.7); NEUT % 84 % (31-73); PLATELET COUNT 221 x10^3/uL (140-400); RED BLOOD COUNT 3.41 x10^6/uL (3.50-5.40); RED CELL DISTRIBUTION WIDTH 13.1 % (11.5-14.5); WHITE BLOOD COUNT 2.9 x10^3/uL (4.0-11.0)
[2022-01-27 07:52] LABS: CALCIUM 9.1 mg/dL (8.5-10.1); CREATININE 0.6 mg/dL (0.6-1.0); GFR 95.5; MAGNESIUM 2.2 mg/dL (1.8-2.4); PHOSPHORUS 3.1 mg/dL (2.6-4.7)
[2022-01-27] MEDS: PANTOPRAZOLE 40 MG TABLET.DR. PO SCH (09:01)
[2022-01-27] MEDS: IV NORMAL SALINE 1000ML BAG 1,000 ML IV SCH ×3 (09:02→20:00)
--- NOTE | 2022-01-27 09:14 | EKG ---
[facility] [address] [place] [address] Test Date: 2022-01-26 Test Time: 09:07:19 Pat Name: HERLINDA QUINN Department: Room: [facility] Gender: F Missionary Coordinator: : 1940 Requested By: SALLY COVARRUBIAS Order Number: [id number] Reading MD: Zachary Aguayo MD Measurements Intervals [place] Rate: 81 P: -6 HI: 152 QRS: -6 QRSD: 146 T: 117 QT: 408 QTc: 474 Interpretive Statements SINUS RHYTHM PACS LBBB Electronically Signed On 02-03-2022 7:29:59 CDT by Zachary Aguayo MD
--- NOTE | 2022-01-27 10:19 | CONS ---
DATE OF CONSULTATION: 01/27/2022 PULMONARY CONSULTATION ATTENDING PHYSICIAN: Dallin Alcantara DO REASON FOR CONSULTATION: COPD, dyspnea. HISTORY OF PRESENT ILLNESS: The patient is 81-year-old female who has been seen by my partner, Dr. Clemente, in the office. The patient has COPD from secondhand tobacco use. She is on home oxygen at 3 liters on a 24-hour basis. The patient was brought into the hospital with complaint of increased shortness of breath. She states that she usually takes Spiriva and Symbicort at home, but was recently changed to Trelegy Ellipta by her PCP and she started to feel worse. She has an occasional cough. No chest pain. No fever, no chills. She is updated on her COVID vaccine. She is currently requiring 2 liters of oxygen. I have reviewed the patient's chest x-ray and it shows a large hiatal hernia. There is likely compressive atelectasis at the bases from the hiatal hernia. PAST MEDICAL HISTORY: Significant for COPD from secondhand tobaccoism, history of chronic hypoxic respiratory failure, vertigo, hypothyroidism and hypertension. PAST SURGICAL HISTORY: No recent surgery. ALLERGIES: None. FAMILY HISTORY: Noncontributory to lungs. SOCIAL HISTORY: The patient states that she had not smoked cigarettes, but had secondhand exposures. 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 MEDICATIONS: Reviewed as listed in the MRAD including IV Solu-Medrol, DuoNebs, Lovenox for DVT prophylaxis. REVIEW OF SYSTEMS: A 12-point system obtained. Pertinent positives discussed in my present illness, otherwise noncontributory. All systems that were negative were reviewed as well. PHYSICAL EXAMINATION: VITAL SIGNS: Reviewed. Blood pressure stable, pulse ox 96% on 2 liters. NECK: Supple. LUNGS: With diminished breath sounds bilaterally. No wheezing. CARDIOVASCULAR: With a regular rate. ABDOMEN: Soft, nontender. EXTREMITIES: With no pitting edema. LABORATORY DATA: Reviewed. White cell count 2.9, hemoglobin 10.6 and platelets are 221. BUN and creatinine normal. Sodium 136. IMPRESSION: 1. Dyspnea secondary to acute exacerbation of chronic obstructive pulmonary disease. Probably the change in her home bronchodilators may have contributed to it. She states she has done well with combination of Spiriva and Symbicort, but when it was stopped and changed to Trelegy Ellipta, she felt more shortness of air. 2. Abnormal chest x-ray with large hiatal hernia with compressive atelectasis. No signs of pneumonia. 3. No significant tobacco history, but secondhand tobacco exposure. 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 We will obtain PFT results from the office. RECOMMENDATIONS: 1. Discussed with the patient, at this point, I do not see a need for antibiotics as clinically there is no pneumonia. 2. Continue DuoNebs. 3. Continue IV Solu-Medrol. 4. Lovenox for DVT prophylaxis. 5. Dietary precautions to prevent aspiration was given in the setting of large hiatal hernia. She was instructed to keep head of the bed elevated at 30 degrees, avoid spicy food and eat her supper 3 hours before going to bed. 6. We will obtain results of the PFTs from the office. 7. The patient to go back to [facility] post discharge. JULIO DR: Cesar TID: [id number]
[2022-01-27 11:00] VITALS: BP 133/64
--- NOTE | 2022-01-27 11:34 | NUR ---
SW following. Discussed with RN, pt from home alone, 2L (uses 2-3L at home), cardiac diet. Pulmonology following. RN ordering PT/OT. RN advised no SW needs at this time. SW will continue to follow.
--- NOTE | 2022-01-27 11:54 | PDOC ---
[employer] PROGRESS NOTE Date of Service DOS: DATE: 01/27/22 TIME: 11:52 Chief Complaint Chief Complaint Assessment/Plan Acute hypoxic respiratory failure Acute electrolyte derangementhyponatremia, hypochloremia, hypokalemia, hypomagnesemia suggestive of volume depletion Hypertensive urgency History of COPD History of hypertension History of hypothyroidism History of vertigo Admit to hospitalist service for further management IV steroids O2 supplementation Continue IV fluids IV electrolyte replacement as needed Resume home antihypertensive regimens Lovenox for DVT prophylaxis Protonix while on steroids GI prophylaxis Cardiac diet CODE STATUS full Discussed with RN and SW Disposition inpatient management as above DPOA: Sister History of Present Illness History of Present Illness 81-year-old female with past medical history of COPD, hypertension, hypothyroidism who presents with shakiness, weakness and shortness of breath. Onset of symptoms began about 2 weeks ago starting with shortness of breath. This morning she also felt shakiness and weakness and that is why she came to the hospital. Her PCP recently changed her inhalers from Spiriva and Symbicort to Trelegy mainly due to cost and efficacy and ever since the change of her she has been having worsening of her symptoms. Patient is on chronic 3 L nasal cannula at home for her COPD. Denies any fevers, chest pain, abdominal pain, nausea vomiting, dysuria or hematuria or smoking. Patient is vaccinated for Covid. Her publicity consultant is Dr. Clemente. 01/27/2022 No acute events overnight. Patient seen examined bedside. No dyspnea upon my encounter. Saturating 96% on 2 L nasal cannula. Pulmonology evaluated and recommended patient to go back on Spiriva and Symbicort. Antibiotics were discontinued. We will continue with steroids and pending PFT results. Anticipate discharge in the next 24 to 48 hours contingent upon clinical improvement. Patient's chart, labs, images were reviewed and discussed with RN Vitals/I&O Vitals/I&O: Vital Signs Date Time Temp Pulse Resp B/P (MAP) Pulse Ox O2 Delivery O2 Flow Rate FiO2 01/27/22 11:32 96 Nasal Cannula 2.0 01/27/22 11:00 98.6 94 20 133/64 (87) 98.6 I & O 01/26/22 01/26/22 01/27/22 15:00 23:00 07:00 Intake Total 1000 ml 240 ml Balance 1000 ml 240 ml Physical Exam General: Alert, Oriented X3, Cooperative Heart: Regular rate Lungs: Clear Abdomen: Normal bowel sounds Extremities: No clubbing Skin: No rashes Labs Labs: Laboratory Tests Test 01/27/22 06:45 White Blood Count 2.9 x10^3/uL (4.0-11.0) Red Blood Count 3.41 x10^6/uL (3.50-5.40) Hemoglobin 10.6 g/dL (12.0-15.5) Hematocrit 30.6 % (36.0-47.0) Mean Corpuscular Volume 90 fL (79-100) Mean Corpuscular Hemoglobin 31 pg (25-35) Mean Corpuscular Hemoglobin Concent 35 g/dL (31-37) Red Cell Distribution Width 13.1 % (11.5-14.5) Platelet Count 221 x10^3/uL (140-400) Neutrophils (%) (Auto) 84 % (31-73) Lymphocytes (%) (Auto) 14 % (24-48) Monocytes (%) (Auto) 2 % (0-9) Eosinophils (%) (Auto) 0 % (0-3) Basophils (%) (Auto) 0 % (0-3) Neutrophils # (Auto) 2.5 x10^3/uL (1.8-7.7) Lymphocytes # (Auto) 0.4 x10^3/uL (1.0-4.8) Monocytes # (Auto) 0.1 x10^3/uL (0.0-1.1) Eosinophils # (Auto) 0.0 x10^3/uL (0.0-0.7) Basophils # (Auto) 0.0 x10^3/uL (0.0-0.2) Sodium Level 136 mmol/L (136-145) Potassium Level 4.0 mmol/L (3.5-5.1) Chloride Level 99 mmol/L (98-107) Carbon Dioxide Level 31 mmol/L (21-32) Anion Gap 6 (6-14) Blood Urea Nitrogen 14 mg/dL (7-20) Creatinine 0.6 mg/dL (0.6-1.0) Estimated GFR (Cockcroft-Gault) 95.5 Glucose Level 132 mg/dL (70-99) Calcium Level 9.1 mg/dL (8.5-10.1) Phosphorus Level 3.1 mg/dL (2.6-4.7) Magnesium Level 2.2 mg/dL (1.8-2.4) Assessment and Plan Assessmemt and Plan Problems Medical Problems: (1) COPD exacerbation Status: Acute (2) Weakness Status: Acute Comment Review of Relevant I have reviewed the following items kathi (where applicable) has been applied. Medications: Current Medications Medications (Trade) Dose Ordered Sig/Petty Route PRN Reason Start Time Stop Time Status Last Admin Dose Admin Methylprednisolone Sodium Succinate (SOLU-Medrol 40MG VIAL) 40 mg Q6HRS IV 01/26/22 18:00 01/27/22 05:39 Albuterol/ Ipratropium (Duoneb) 3 ml RTQID NEB 01/26/22 16:00 01/27/22 11:32 Sodium Chloride 1,000 ml @ 100 mls/hr Q10H IV 01/26/22 14:00 01/27/22 09:02 Enoxaparin Sodium (Lovenox 40mg Syringe) 40 mg Q24H SQ 01/26/22 14:00 01/26/22 13:57 Pantoprazole Sodium (Protonix) 40 mg DAILYAC PO 01/27/22 07:30 01/27/22 09:01 Potassium Chloride (Klor-Con) 40 meq 1X ONCE PO 01/26/22 14:00 01/26/22 14:01 DC 01/26/22 13:57 Magnesium Sulfate 50 ml @ 25 mls/hr 1X ONCE IV 01/26/22 14:00 01/26/22 15:59 DC 01/26/22 13:56 Justifications for Admission Other Justification COPD exacerbation ZARINA OLIVA MD Jan 27, 2022 11:54
[2022-01-27] MEDS: ENOXAPARIN 40 MG/0.4 ML SYRINGE. SQ SCH (14:27)
[2022-01-27 14:57] VITALS: BP 133/77
[2022-01-27 19:00] VITALS: BP 122/63
[2022-01-27 23:03] VITALS: BP 120/65
[2022-01-28 03:31] VITALS: BP 147/77
[2022-01-28] MEDS: methylPREDNISolone SOD SUCC PF 40 MG/ML VIAL. IV SCH ×3 (06:00→12:00)
[2022-01-28] MEDS: IV NORMAL SALINE 1000ML BAG 1,000 ML IV SCH ×2 (06:00→08:05)
[2022-01-28 07:00] VITALS: BP 138/72
[2022-01-28] MEDS: IPRATRPIUM/ALBUTEROL 0.5/2.5MG 3 ML NEBU. NEB SCH ×2 (07:27→12:05)
[2022-01-28] MEDS: PANTOPRAZOLE 40 MG TABLET.DR. PO SCH (07:59)
[2022-01-28 09:35] LABS: BASO % 0 % (0-3); EOS % 0 % (0-3); HEMATOCRIT 31.2 % (36.0-47.0); LYMPH # 0.7 x10^3/uL (1.0-4.8); LYMPH % 10 % (24-48); MEAN CORPUSCULAR HEMOGLOBIN 29 pg (25-35); MEAN CORPUSCULAR HGB CONC 32 g/dL (31-37); MEAN CORPUSCULAR VOLUME 91 fL (79-100); MONO # 0.7 x10^3/uL (0.0-1.1); MONO % 11 % (0-9); NEUT # 5.3 x10^3/uL (1.8-7.7); NEUT % 79 % (31-73); PLATELET COUNT 224 x10^3/uL (140-400); RED BLOOD COUNT 3.45 x10^6/uL (3.50-5.40); RED CELL DISTRIBUTION WIDTH 13.4 % (11.5-14.5); WHITE BLOOD COUNT 6.8 x10^3/uL (4.0-11.0)
[2022-01-28 09:44] LABS: CALCIUM 8.9 mg/dL (8.5-10.1); CREATININE 0.6 mg/dL (0.6-1.0); GFR 95.5; MAGNESIUM 2.2 mg/dL (1.8-2.4); POTASSIUM 3.2 mmol/L (3.5-5.1)
--- NOTE | 2022-01-28 10:47 | PDOC ---
PULMONARY PROGRESS NOTES DATE: 01/28/22 TIME: 10:46 Subjective SOME FRANK Vitals Vital Signs Date Time Temp Pulse Resp B/P (MAP) Pulse Ox O2 Delivery O2 Flow Rate FiO2 01/28/22 08:11 Nasal Cannula 2.0 01/28/22 07:28 98 01/28/22 07:00 98.1 95 20 138/72 (94) 98.1 General: Alert, Oriented X4 HEENT: Other Lungs: Clear Cardiovascular: S1 Abdomen: Soft, Non-tender Extremities: No Edema Labs Laboratory Tests Test 01/27/22 06:45 01/28/22 08:21 White Blood Count 2.9 x10^3/uL (4.0-11.0) 6.8 x10^3/uL (4.0-11.0) Red Blood Count 3.41 x10^6/uL (3.50-5.40) 3.45 x10^6/uL (3.50-5.40) Hemoglobin 10.6 g/dL (12.0-15.5) 10.0 g/dL (12.0-15.5) Hematocrit 30.6 % (36.0-47.0) 31.2 % (36.0-47.0) Mean Corpuscular Volume 90 fL (79-100) 91 fL (79-100) Mean Corpuscular Hemoglobin 31 pg (25-35) 29 pg (25-35) Mean Corpuscular Hemoglobin Concent 35 g/dL (31-37) 32 g/dL (31-37) Red Cell Distribution Width 13.1 % (11.5-14.5) 13.4 % (11.5-14.5) Platelet Count 221 x10^3/uL (140-400) 224 x10^3/uL (140-400) Neutrophils (%) (Auto) 84 % (31-73) 79 % (31-73) Lymphocytes (%) (Auto) 14 % (24-48) 10 % (24-48) Monocytes (%) (Auto) 2 % (0-9) 11 % (0-9) Eosinophils (%) (Auto) 0 % (0-3) 0 % (0-3) Basophils (%) (Auto) 0 % (0-3) 0 % (0-3) Neutrophils # (Auto) 2.5 x10^3/uL (1.8-7.7) 5.3 x10^3/uL (1.8-7.7) Lymphocytes # (Auto) 0.4 x10^3/uL (1.0-4.8) 0.7 x10^3/uL (1.0-4.8) Monocytes # (Auto) 0.1 x10^3/uL (0.0-1.1) 0.7 x10^3/uL (0.0-1.1) Eosinophils # (Auto) 0.0 x10^3/uL (0.0-0.7) 0.0 x10^3/uL (0.0-0.7) Basophils # (Auto) 0.0 x10^3/uL (0.0-0.2) 0.0 x10^3/uL (0.0-0.2) Sodium Level 136 mmol/L (136-145) 139 mmol/L (136-145) Potassium Level 4.0 mmol/L (3.5-5.1) 3.2 mmol/L (3.5-5.1) Chloride Level 99 mmol/L (98-107) 102 mmol/L (98-107) Carbon Dioxide Level 31 mmol/L (21-32) 30 mmol/L (21-32) Anion Gap 6 (6-14) 7 (6-14) Blood Urea Nitrogen 14 mg/dL (7-20) 21 mg/dL (7-20) Creatinine 0.6 mg/dL (0.6-1.0) 0.6 mg/dL (0.6-1.0) Estimated GFR (Cockcroft-Gault) 95.5 95.5 Glucose Level 132 mg/dL (70-99) 91 mg/dL (70-99) Calcium Level 9.1 mg/dL (8.5-10.1) 8.9 mg/dL (8.5-10.1) Phosphorus Level 3.1 mg/dL (2.6-4.7) Magnesium Level 2.2 mg/dL (1.8-2.4) 2.2 mg/dL (1.8-2.4) Laboratory Tests Test 01/28/22 08:21 White Blood Count 6.8 x10^3/uL (4.0-11.0) Red Blood Count 3.45 x10^6/uL (3.50-5.40) Hemoglobin 10.0 g/dL (12.0-15.5) Hematocrit 31.2 % (36.0-47.0) Mean Corpuscular Volume 91 fL (79-100) Mean Corpuscular Hemoglobin 29 pg (25-35) Mean Corpuscular Hemoglobin Concent 32 g/dL (31-37) Red Cell Distribution Width 13.4 % (11.5-14.5) Platelet Count 224 x10^3/uL (140-400) Neutrophils (%) (Auto) 79 % (31-73) Lymphocytes (%) (Auto) 10 % (24-48) Monocytes (%) (Auto) 11 % (0-9) Eosinophils (%) (Auto) 0 % (0-3) Basophils (%) (Auto) 0 % (0-3) Neutrophils # (Auto) 5.3 x10^3/uL (1.8-7.7) Lymphocytes # (Auto) 0.7 x10^3/uL (1.0-4.8) Monocytes # (Auto) 0.7 x10^3/uL (0.0-1.1) Eosinophils # (Auto) 0.0 x10^3/uL (0.0-0.7) Basophils # (Auto) 0.0 x10^3/uL (0.0-0.2) Sodium Level 139 mmol/L (136-145) Potassium Level 3.2 mmol/L (3.5-5.1) Chloride Level 102 mmol/L (98-107) Carbon Dioxide Level 30 mmol/L (21-32) Anion Gap 7 (6-14) Blood Urea Nitrogen 21 mg/dL (7-20) Creatinine 0.6 mg/dL (0.6-1.0) Estimated GFR (Cockcroft-Gault) 95.5 Glucose Level 91 mg/dL (70-99) Calcium Level 8.9 mg/dL (8.5-10.1) Magnesium Level 2.2 mg/dL (1.8-2.4) Medications Active Scripts Medications Dose Route/Sig Max Daily Dose Days Date Category Trelegy Ellipta 100-62.5-25 (Fluticasone/Umeclidin/Vilanter) 1 Each Blst.w.dev 1 Each IH DAILY 01/26/22 Reported Proair Hfa Inhaler (Albuterol Sulfate) 8.5 Gm Hfa.aer.ad 2 Puff IH PRN Q4-6HRS PRN 21 01/26/22 Reported Vitamin D3 (Cholecalciferol (Vitamin D3)) 25 Mcg Tablet 25 Mcg PO DAILY 01/26/22 Reported Levothyroxine Sodium 125 Mcg Tablet 125 Mcg PO DAILYAC 01/26/22 Reported Albuterol Sulfate Conc Neb Soln (Albuterol Sulfate) 2.5 Mg/0.5 Ml Vial.neb 2.5 Mg IH QID 01/21/14 Reported Aspirin 325 Mg Tablet 325 Mg PO DAILY 01/21/14 Reported Losartan Potassium 100 Mg Tablet 100 Mg PO DAILY 01/21/14 Reported Verapamil Er (Verapamil Hcl) 240 Mg Tablet.er 120 Mg PO QHS 01/21/14 Reported Verapamil Er (Verapamil Hcl) 240 Mg Tablet.er 240 Mg PO DAILY 01/21/14 Reported Impression . 1. Dyspnea secondary to acute exacerbation of chronic obstructive pulmonary disease. Probably the change in her home bronchodilators may have contributed to it. She states she has done well with combination of Spiriva and Symbicort, but when it was stopped and changed to Trelegy Ellipta, she felt more shortness of air. 2. Abnormal chest x-ray with large hiatal hernia with compressive atelectasis. No signs of pneumonia. 3. No significant tobacco history, but secondhand tobacco exposure. 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 We will obtain PFT results from the office. Plan . 1. Discussed with the patient, at this point, I do not see a need for antibiotics as clinically there is no pneumonia. 2. Continue DuoNebs. 3. Continue IV Solu-Medrol. 4. Lovenox for DVT prophylaxis. 5. Dietary precautions to prevent aspiration was given in the setting of large hiatal hernia. She was instructed to keep head of the bed elevated at 30 degrees, avoid spicy food and eat her supper 3 hours before going to bed. 6. We will obtain results of the PFTs from the office. 7. The patient to go back to Spiriva and Symbicort post discharge. ARIEL CHOUDHARY MD Jan 28, 2022 10:47
[2022-01-28 11:00] VITALS: BP 136/73
[2022-01-28] MEDS ORDERED: BUDE10.22 IH (11:02)
[2022-01-28] MEDS ORDERED: TIOT18CA IH (11:02)
--- NOTE | 2022-01-28 11:04 | SNU/HH DC ---
DISCHARGE WITH HOME HEALTH DISCHARGE INFORMATION: Discharge Date: Jan 28, 2022 Final Diagnosis: Problems Medical Problems: (1) COPD exacerbation Status: Acute (2) Weakness Status: Acute Condition on Discharge: Stable CODE STATUS: Code Status: Full HOME HEALTH: Face to Face: I certify this patient is under my care and that I, or a nurse practitioner or physician's retail loan originator assistant working with me, had a face to face encounter that meets the physician face to face encounter requirements with this patient on []. Medical Complications: COPD, HTN Care Home For: Assess Cardiopulm Status, Assess & Educate Safety, Assess/Skilled Observatio, Medication Management RN For Eval/Treatment: Yes Physical Therapy For: Evalulation/Treatment Occupational Therapy For: Evaluation/Treatment Home Health Aide For: Self-care Pt Meets Homebound Status: Limited distance walking, Unable to negotiate home POST DISCHARGE ORDERS: Activity Instructions for Disc: Activity as tolerated Weight Bearing Status after Di: As tolerated DIET AFTER DISCHARGE: Cardiac Wound/Incision Care: Ice to area for comfort CHECKS AFTER DISCHARGE: Checks after discharge: Check blood press - daily, Check your Temp as needed, Weigh Yourself Daily FOLLOW-UP: Follow up with: PCP within 2 weeks of discharge Follow Up With: Pulmonary as scheduled or as needed TREATMENT/EQUIPMENT ORDERS: Adaptive Equipment Issued: None Discharge Respiratory Equipmen: Oxygen CERTIFICATION STATEMENT: Certification Statement: Certification Statement: Based on the above finding, I certify that this patient is confined to the home and needs intermittent retirement care, physical therapy and/or speech therapy, or continues to need occupational therapy.~ This patient is under my care, and I have initiated the establishment of the plan of care.~ This patient will be followed by myself or a community physician who will periodically review the plan of care. Home Meds Active Scripts Budesonide/Formoterol Fumarate (SYMBICORT 80-4.5 MCG INHALER) 10.2 Gm Hfa.aer.ad, 1 PUFF IH BID for copd for 30 Days, #1 EACH Prov:ZARINA OLIVA MD 01/28/22 Tiotropium [place] (SPIRIVA) 18 Mcg Cap.w.dev, 1 CAP IH DAILY for copd for 30 Days, #30 CAP 3 Refills Prov:ZARINA OLIVA MD 01/28/22 Reported Medications Albuterol Sulfate (PROAIR HFA INHALER) 8.5 Gm Hfa.aer.ad, 2 PUFF IH PRN Q4-6HRS PRN for wheezing for 21 Days, #1 INHALER 0 Refills 01/26/22 Cholecalciferol (Vitamin D3) (Vitamin D3) 25 Mcg Tablet, 25 MCG PO DAILY for SUPPLEMENT, TAB 01/26/22 Levothyroxine Sodium (LEVOTHYROXINE SODIUM) 125 Mcg Tablet, 125 MCG PO DAILYAC for THYROID SUPPLEMENT, #30 TAB 0 Refills 01/26/22 Aspirin (ASPIRIN) 325 Mg Tablet, 325 MG PO DAILY 01/21/14 Losartan Potassium (LOSARTAN POTASSIUM) 100 Mg Tablet, 100 MG PO DAILY 01/21/14 Verapamil Hcl (VERAPAMIL ER) 240 Mg Tablet.er, 120 MG PO QHS 01/21/14 Discontinued Reported Medications Fluticasone/Umeclidin/Vilanter (Trelegy Ellipta 100-62.5-25) 1 Each Blst.w.dev, 1 EACH IH DAILY for MAINTENENCE INHALER 01/26/22 Albuterol Sulfate (ALBUTEROL SULFATE CONC NEB SOLN) 2.5 Mg/0.5 Ml Vial.neb, 2.5 MG IH QID 01/21/14 Verapamil Hcl (VERAPAMIL ER) 240 Mg Tablet.er, 240 MG PO DAILY 01/21/14 Levothyroxine Sodium (LEVOTHYROXINE SODIUM) 100 Mcg Tablet, 100 MCG PO DAILY 01/21/14 ZARINA OLIVA MD Jan 28, 2022 11:04
[2022-01-28] MEDS ORDERED: PRED20TA PO (11:06)
--- NOTE | 2022-01-28 12:07 | NUR ---
SW following. Discussed with RN, pt from home alone, uses oxygen at home, cardiac diet. Discharge order for home with home health. Pt has had [facility] in the past. Deyanira Jamil RN notified of referral and discharge. RN notified.
[2022-01-28 12:14] VITALS: BP_SYST 134; BP_SYST 140; BP_SYST 144; BP_DIAS 70; BP_DIAS 80; BP_DIAS 87
--- NOTE | 2022-01-28 13:27 | NUR ---
Pt left unit at 1327 by wheelchair via private vehicle. Pt's IV removed without complications, VSS. Discharge paperwork, follow-up, and medications discussed. Teaching provided. Pt verbalizes understanding.
--- NOTE | 2022-01-30 07:20 | PDOC3 ---
[facility]-Discharge Summary Date of Admission: Date of Admission: Jan 26, 2022 Date of Discharge: Date of Discharge: Jan 28, 2022 Discharge Diagnosis: Discharge Diagnosis: Acute hypoxic respiratory failure Acute electrolyte derangementhyponatremia, hypochloremia, hypokalemia, hypomagnesemia suggestive of volume depletion Hypertensive urgency History of COPD History of hypertension History of hypothyroidism History of vertigo Consults: Consults: Per pulmonology: Plan . 1. Discussed with the patient, at this point, I do not see a need for antibiotics as clinically there is no pneumonia. 2. Continue DuoNebs. 3. Continue IV Solu-Medrol. 4. Lovenox for DVT prophylaxis. 5. Dietary precautions to prevent aspiration was given in the setting of large hiatal hernia. She was instructed to keep head of the bed elevated at 30 degrees, avoid spicy food and eat her supper 3 hours before going to bed. 6. We will obtain results of the PFTs from the office. 7. The patient to go back to Spiriva and Symbicort post discharge. Hospital Course: Hospital Course: 81-year-old female with past medical history of COPD, hypertension, hypothyroidism who presents with shakiness, weakness and shortness of breath. Onset of symptoms began about 2 weeks ago starting with shortness of breath. This morning she also felt shakiness and weakness and that is why she came to the hospital. Her PCP recently changed her inhalers from Spiriva and Symbicort to Trelegy mainly due to cost and efficacy and ever since the change of her she has been having worsening of her symptoms. Patient is on chronic 3 L nasal cannula at home for her COPD. Denies any fevers, chest pain, abdominal pain, nausea vomiting, dysuria or hematuria or smoking. Patient is vaccinated for Covid. Her slps is Dr. Clemente. 01/27/2022 No acute events overnight. Patient seen examined bedside. No dyspnea upon my encounter. Saturating 96% on 2 L nasal cannula. Pulmonology evaluated and recommended patient to go back on Spiriva and Symbicort. Antibiotics were discontinued. We will continue with steroids and pending PFT results. Anticipate discharge in the next 24 to 48 hours contingent upon clinical improvement. Patient's chart, labs, images were reviewed and discussed with RN By time of hospital discharge patient was clinically stable. She is not dy spneic and was on her baseline O2 requirement. See pulmonology recommendations above. Rest of hospital course was uneventful Disposition: Disposition/Orders: D/C to Home Activity: Activity: Resume previous activity Diet: Diet: Cardiac Medications: Home Meds Active Scripts Prednisone (PREDNISONE) 20 Mg Tablet, 1 TAB PO DAILY for COPD exacerbation for 5 Days, #5 TAB Prov:ZARINA OLIVA MD 01/28/22 Budesonide/Formoterol Fumarate (SYMBICORT 80-4.5 MCG INHALER) 10.2 Gm Hfa.aer.ad, 1 PUFF IH BID for copd for 30 Days, #1 EACH Prov:ZARINA OLIVA MD 01/28/22 Tiotropium [place] (SPIRIVA) 18 Mcg Cap.w.dev, 1 CAP IH DAILY for copd for 30 Days, #30 CAP 3 Refills Prov:ZARINA OLIVA MD 01/28/22 Reported Medications Albuterol Sulfate (PROAIR HFA INHALER) 8.5 Gm Hfa.aer.ad, 2 PUFF IH PRN Q4-6HRS PRN for wheezing for 21 Days, #1 INHALER 0 Refills 01/26/22 Cholecalciferol (Vitamin D3) (Vitamin D3) 25 Mcg Tablet, 25 MCG PO DAILY for SUPPLEMENT, TAB 01/26/22 Levothyroxine Sodium (LEVOTHYROXINE SODIUM) 125 Mcg Tablet, 125 MCG PO DAILYAC for THYROID SUPPLEMENT, #30 TAB 0 Refills 01/26/22 Aspirin (ASPIRIN) 325 Mg Tablet, 325 MG PO DAILY 01/21/14 Losartan Potassium (LOSARTAN POTASSIUM) 100 Mg Tablet, 100 MG PO DAILY 01/21/14 Verapamil Hcl (VERAPAMIL ER) 240 Mg Tablet.er, 120 MG PO QHS 01/21/14 Discontinued Reported Medications Fluticasone/Umeclidin/Vilanter (Trelegy Ellipta 100-62.5-25) 1 Each Blst.w.dev, 1 EACH IH DAILY for MAINTENENCE INHALER 01/26/22 Albuterol Sulfate (ALBUTEROL SULFATE CONC NEB SOLN) 2.5 Mg/0.5 Ml Vial.neb, 2.5 MG IH QID 01/21/14 Verapamil Hcl (VERAPAMIL ER) 240 Mg Tablet.er, 240 MG PO DAILY 01/21/14 Levothyroxine Sodium (LEVOTHYROXINE SODIUM) 100 Mcg Tablet, 100 MCG PO DAILY 01/21/14 Scheduled Aspirin (Aspirin), 325 MG PO DAILY, (Reported) Budesonide/Formoterol Fumarate (Symbicort 80-4.5 Mcg Inhaler), 1 PUFF IH BID Cholecalciferol (Vitamin D3) (Vitamin D3), 25 MCG PO DAILY, (Reported) Levothyroxine Sodium (Levothyroxine Sodium), 125 MCG PO DAILYAC, (Reported) Losartan Potassium (Losartan Potassium), 100 MG PO DAILY, (Reported) Prednisone (Prednisone), 1 TAB PO DAILY Tiotropium [place] (Spiriva), 1 CAP IH DAILY Verapamil Hcl (Verapamil Er), 120 MG PO QHS, (Reported) Scheduled PRN Albuterol Sulfate (Proair Hfa Inhaler), 2 PUFF IH PRN Q4-6HRS PRN for wheezing, (Reported) Discontinued Medications Albuterol Sulfate (Albuterol Sulfate Conc Neb Soln), 2.5 MG IH QID, (Reported) Fluticasone/Umeclidin/Vilanter (Trelegy Ellipta 100-62.5-25), 1 EACH IH DAILY, (Reported) Levothyroxine Sodium (Levothyroxine Sodium), 100 MCG PO DAILY, (Reported) Discontinued Reason: Prescription changed Verapamil Hcl (Verapamil Er), 240 MG PO DAILY, (Reported) Total Time: Total Time: Total time spent was 35 minutes in preparing scripts, discharge planning with SWI and RN and preparing this discharge summary Patient seen and examined on day of discharge. No acute abnormal findings. Justicifation of Admission Dx: Justifications for Admission: Justification of Admission Dx: Yes ZARINA OLIVA MD Jan 30, 2022 07:19
== END 2022-01-28 13:33 | disposition home health service (06) ==
LOC: ER 08:46 → INTOOBSV 11:45 → 5 NORTH 11:45
PROVIDERS: ADMIT Internal Medicine; ATTEND Internal Medicine
DX: J96.01 Acute respiratory failure with hypoxia (principal); E87.1 Hypo-osmolality and hyponatremia; E83.42 Hypomagnesemia; E87.6 Hypokalemia; E03.9 Hypothyroidism, unspecified; E87.8 Other disorders of electrolyte and fluid balance, not elsewhere classified; I16.0 Hypertensive urgency; I10 Essential (primary) hypertension; J43.9 Emphysema, unspecified; R53.1 Weakness; J98.11 Atelectasis; K44.9 Diaphragmatic hernia without obstruction or gangrene; R42 Dizziness and giddiness; Z87.891 Personal history of nicotine dependence; Z79.899 Other long term (current) drug therapy; Z98.890 Other specified postprocedural states
CPT/HCPCS: 36415; 71045; 80048; 80053; 81001; 83735; 83880; 84100; 84443; 84484; 85025; 85379; 93005; 94640; 94760; 96361; 96365; 96366; 96372; 96375; 96376; 97110; 97116; 97161; 97165; 97535; 99284; G0378; J1650; J2920; J2930; J3475; J7030; G0379; 99285-25